=== PATIENT | female | born 1995 | race Caucasian/White ===

== ENCOUNTER 2018-12-04 22:19 | Emergency (ER) | payer SELFPAY ==
[~2018-12-04] VITALS: Ht 167.6 cm; Wt 63.6 kg
[2018-12-04 22:29] VITALS: BP 142/107; Ht 167.6 cm; Wt 63.6 kg
[2018-12-04] MEDS ORDERED: BACLOFEN10 MG PO (22:31)
[2018-12-04] MEDS ORDERED: TAPAZOLE 10 MG10 MG PO (22:31)
[2018-12-04] MEDS ORDERED: ZOFRAN4 MG PO (22:32)
[2018-12-04] MEDS ORDERED: SUMATRIPTAN SUC25 MG PO (22:32)
[2018-12-04] MEDS ORDERED: REXULTI1 MG PO (22:32)
[2018-12-04] MEDS ORDERED: SINGULAIR10 MG PO (22:32)
[2018-12-04] MEDS ORDERED: BUPROPION XL300 MG PO (22:32)
[2018-12-04] MEDS ORDERED: MECLIZINE HCL25 MG PO (22:33)
[2018-12-04] MEDS ORDERED: OXYCONTIN10 MG PO (22:33)
[2018-12-04] MEDS ORDERED: IBUPROFEN800 MG PO (22:33)
[2018-12-04] MEDS ORDERED: PROVIGIL100 MG PO (22:34)
[2018-12-04] MEDS ORDERED: XANAX2 MG PO (22:34)
[2018-12-04] MEDS ORDERED: REQUIP3 MG PO (22:34)
[2018-12-04] MEDS ORDERED: LUNESTA2 M1 PO (22:35)
[2018-12-04] MEDS ORDERED: LYRICA75 MG PO (22:35)
== END 2018-12-04 23:10 | disposition left against medical advice (07) ==
LOC: D.ER 22:19
DX: R10.9 Unspecified abdominal pain (principal)